=== PATIENT | male | born 1995 | race Caucasian/White ===

== ENCOUNTER → 2020-06-20 | Outpatient (CLI) | payer OTHER ==
--- NOTE | 2020-06-20 10:04 | REP ---
INDICATION: PAIN AND SWELLING COMPARISON: None. TECHNIQUE: Rios scale and color Doppler evaluation using linear and curved array transducer with color Doppler evaluation. FINDINGS: The testicles and epididymi are relatively normal in contour, size, echogenicity, vascularity and overall appearance. There is no evidence for intratesticular mass lesion, infectious/inflammatory process, or torsion. No obvious hydroceles or varicoceles are identified. Right testicle measures 5.2 x 2.6 x 3.1 cm. Left testicle measures 4.9 x 2.5 x 2.9 cm. IMPRESSION: Essentially normal scrotal ultrasound. <Electronically signed by Sundar Hooks > 06/20/20 1000
== END ==
LOC: M RAD 09:22
PROVIDERS: ATTEND Physician Assistant Medical
DX: N50.812 Left testicular pain (principal)

== ENCOUNTER 2021-03-12 17:49 | Emergency (ER) | payer OTHER ==
[~2021-03-12] VITALS: Ht 182.9 cm; Wt 102.1 kg
[2021-03-12 17:49] VITALS: BP 157/74
[2021-03-12] MEDS ORDERED: METH4TAB8 PO (18:21)
== END 2021-03-13 03:37 | disposition left against medical advice (07) ==
LOC: M ED 17:49
DX: Z53.29 Procedure and treatment not carried out because of patient's decision for other reasons (principal)

== ENCOUNTER 2023-10-17 16:26 | Emergency (ER) | payer OTHER ==
[~2023-10-17] VITALS: Ht 182.9 cm; Wt 102.6 kg
[~2023-10-17 16:26] MED LIST: METH4TAB8 PO
[2023-10-17] MEDS ORDERED: METO1TAB7 (16:33)
[2023-10-17 17:02] LABS: BASO % 0.1 % (0.0-1.0); EOS % 0.6 % (0.0-3.0); HEMATOCRIT 46.6 % (42.0-52.0); HEMOGLOBIN 16.9 g/dl (13.5-17.5); LYMPH # 1.6 10^3/uL (1.5-5.0); LYMPH % 22.6 % (24.0-44.0); MEAN CORPUSCULAR HEMOGLOBIN 30.6 pg (27.0-33.0); MEAN CORPUSCULAR HGB CONC 36.3 g/dl (32.0-36.5); MEAN CORPUSCULAR VOLUME 84.3 fl (80.0-96.0); MONO # 0.5 10^3/uL (0.0-0.8); MONO % 6.6 % (2.0-8.0); NEUTROPHILS # 4.9 10^3/uL (1.5-8.5); NEUTROPHILS % 69.5 % (36.0-66.0); PLATELET COUNT, AUTOMATED 204 10^3/uL (150-450); RED BLOOD COUNT 5.53 10^6/uL (4.30-6.10)
[2023-10-17 17:14] LABS: INR 1.15; PARTIAL THROMBOPLASTIN TIME 26.6 SECONDS (24.8-34.2); PROTHROMBIN TIME 14.4 SECONDS (12.5-14.5)
[2023-10-17 17:29] LABS: PHENCYCLIDINE URINE NEGATIVE (NEGATIVE)
[2023-10-17 17:30] LABS: AMPHETAMINES LEVEL URINE NEGATIVE (NEGATIVE); BARBITURATES URINE NEGATIVE (NEGATIVE); BENZODIAZEPINES URINE NEGATIVE (NEGATIVE); CANNABINOIDS URINE NEGATIVE (NEGATIVE); COCAINE METABOLITE URINE NEGATIVE (NEGATIVE); METHADONE URINE NEGATIVE (NEGATIVE); OPIATES URINE NEGATIVE (NEGATIVE)
[2023-10-17 17:33] LABS: LIPASE 32 U/L (12-53)
[2023-10-17 17:34] LABS: CPK CREATINE PHOSPHOKINASE 20 U/L (46-171)
[2023-10-17 17:35] LABS: ALKALINE PHOSPHATASE 72 U/L (46-116); ALT/SGPT 53 U/L (7.0-40); AST/SGOT 19 U/L (<34); BILIRUBIN,DIRECT 0.5 MG/DL (<0.4); BILIRUBIN,TOTAL 1.3 MG/DL (0.3-1.2); BLOOD UREA NITROGEN 11 MG/DL (9-23); CALCIUM LEVEL 9.5 MG/DL (8.5-10.1); CARBON DIOXIDE LEVEL 23 MMOL/L (20-31); CHLORIDE LEVEL 106 MMOL/L (98-107); CK-MB VALUE MASS < 1.0 NG/ML (<3.6); CREATININE FOR GFR 0.96 MG/DL (0.70-1.30); GLOMERULAR FILTRATION RATE > 60.0 (>60); GLUCOSE, FASTING 103 MG/DL (60-100); POTASSIUM SERUM 3.7 MMOL/L (3.5-5.1); SODIUM LEVEL 138 MMOL/L (136-145); TOTAL PROTEIN 7.4 G/DL (5.7-8.2)
[2023-10-17 17:37] LABS: FREE T4 1.46 NG/DL (0.89-1.76); THYROID STIMULATING HORMONE 1.143 uIU/ML (0.55-4.78)
[2023-10-17 19:10] LABS: CK-MB VALUE MASS < 1.0 NG/ML (<3.6); CPK CREATINE PHOSPHOKINASE < 15 U/L (46-171)
[2023-10-17] MEDS: KETOROLAC 30 MG/ML 1ML VIAL IV ONE (19:23)
[2023-10-17 19:24] VITALS: BP 112/57; TEMP 98.1; O2SAT 97
[2023-10-17] MEDS ORDERED: IBUP-1022 PO (19:59)
== END 2023-10-17 20:26 | disposition home or self-care (01) ==
LOC: M ED 16:26
DX: R07.89 Other chest pain (principal); I10 Essential (primary) hypertension; Z88.0 Allergy status to penicillin
CPT/HCPCS: 71046; 80048; 80076; 80307; 81001; 82550; 82553; 83690; 84439; 84443; 84484; 85025; 85610; 85730; 93005; 96374; 99284; J1885